=== PATIENT | male | born 1970 | race Caucasian/White ===

== ENCOUNTER 2018-10-14 07:15 | Inpatient (IN) | payer MEDICAID, MEDICARE ==
[~2018-10-14] VITALS: Ht 157.5 cm; Wt 114.0 kg
[~2018-10-14 07:15] MED LIST: ACET650S12 PR; ADAL40PE7 INJ; AMLO-150 PO; ASPI325T17 PO; ATOR10TA9 PO; AZAT50TA9 PO; CARV6.252 PO; CIPR500T87 PO; EMPA1TAB7 PO; EPINEPHRINE 1 MG/ML, 1ML ONE; FAMO20TA37 PO; FLUC200T4 PO; FLUO20CA19 PO; HYDR-3240 PO; IBUP-1222 PO; INSU100I34 SC; KETOROLAC 60 MG/2 ML ONE; LEVO500T8 PO; LISI40TA PO; LISINOPRIL PO; MELO15TA24 PO; OMEP-110 PO; OXYC-302 PO; OXYC10TA6 PO; OXYC5TAB3 PO; PROM25TA10 PO; ROPIvacaine/PF 0.2%, 20 ML ONE; TRANEXAMIC ACID 100 MG/ML, 10ML ONE; UNKNOWN MEDS; [UNRECOGNIZED DRUG - REMARK]; morphine SULFATE/PF 1 MG/ML, 10ML ONE
[2018-10-14] MEDS ORDERED: LACTATED RINGERS 1,000 ML IV SCH (07:49)
[2018-10-14 07:56] VITALS: BP 142/94
[2018-10-14] MEDS ORDERED: MIDAZOLAM 1 MG/ML, 2ML ONE (08:39)
[2018-10-14] MEDS ORDERED: FENTANYL PF 250 MCG/5ML ONE ×2 (08:39→09:42)
[2018-10-14] MEDS ORDERED: ROCURONIUM 10 MG/ML,10ML ONE (09:22)
[2018-10-14] MEDS ORDERED: DEXAMETHASONE 4 MG/ML, 1ML ONE (09:22)
[2018-10-14] MEDS ORDERED: CEFAZOLIN 1,000 MG ONE (09:22)
[2018-10-14] MEDS ORDERED: PROPOFOL 10 MG/ML, 20ML ONE (09:22)
[2018-10-14] MEDS ORDERED: ONDANSETRON 2MG/ML, 2ML ONE (09:22)
[2018-10-14] MEDS ORDERED: ACETAMINOPHEN 325 MG TABLET PO PRN (09:30)
[2018-10-14] MEDS ORDERED: MEPERIDINE/PF 25MG/0.5ML IVPush PRN (09:30)
[2018-10-14] MEDS ORDERED: OXYcodone 5 MG/5 ML ORAL.SOL UDC PO PRN (09:30)
[2018-10-14] MEDS ORDERED: MORPHINE SULFATE 4 MG/ML, 1ML IVPush PRN (09:30)
[2018-10-14] MEDS ORDERED: LABETALOL 5MG/ML, 20ML IV PRN (09:30)
[2018-10-14] MEDS ORDERED: ONDANSETRON 2MG/ML, 2ML IV PRN (09:30)
[2018-10-14] MEDS ORDERED: FENTANYL PF 100 MCG/2ML ONE ×2 (10:50→11:14)
[2018-10-14] MEDS ORDERED: OXYcodone 5 MG/5 ML ORAL.SOL UDC ONE (10:51)
[2018-10-14] MEDS ORDERED: morphine SULFATE 10 MG/ML, 1ML ONE (10:51)
[2018-10-14] MEDS: FENTANYL PF 100 MCG/2ML IV PRN ×3 (11:00→11:15)
[2018-10-14] MEDS ORDERED: ONDANSETRON 2MG/ML, 2ML IVPush PRN (12:30)
[2018-10-14] MEDS ORDERED: HYDROcodone/APAP 7.5-325MG/15ML UDC PO PRN (12:30)
[2018-10-14] MEDS ORDERED: MAGNESIUM HYDROXIDE 8%, 30ML UDC PO PRN (12:30)
[2018-10-14] MEDS ORDERED: ALUMINUM/MAG/SIMETHICONE 30 ML UDC PO PRN (12:30)
[2018-10-14] MEDS ORDERED: ZOLPIDEM 5MG TABLET PO PRN (12:30)
[2018-10-14] MEDS ORDERED: SENNA/DOCUSATE TABLET PO PRN (12:30)
[2018-10-14] MEDS ORDERED: BISACODYL 10 MG SUPP PR PRN (12:30)
[2018-10-14] MEDS ORDERED: DIPHENHYDRAMINE 25 MG CAPSULE PO PRN (12:30)
[2018-10-14] MEDS: POTASSIUM CHLORIDE 10 MEQ in D5%-0.45% NACL 1,000 ML IV SCH (14:04)
[2018-10-14] MEDS: OXYcodone IR 5MG TABLET PO PRN ×2 (14:35→19:15)
[2018-10-14 15:15] VITALS: BP 125/80
[2018-10-14] MEDS: OMEPRAZOLE 20 MG CAPSULE.DR PO SCH (17:18)
[2018-10-14] MEDS: CEFAZOLIN PMX 1GM/50ML 50 ML IVPB SCH (17:18)
[2018-10-14] MEDS: DOCUSATE 100 MG CAPSULE PO SCH (19:15)
[2018-10-14] MEDS: PREGABALIN 75 MG CAPSULE PO SCH (19:15)
[2018-10-14 19:57] VITALS: BP 115/60
[2018-10-14] MEDS: ACETAMINOPHEN 325 MG TABLET PO PRN (20:48)
[2018-10-14] MEDS ORDERED: INSULIN GLARGINE 100 UNITS/ML, PEN SQ-INSULIN SCH (21:00)
[2018-10-15 00:05] VITALS: BP 105/62
[2018-10-15] MEDS: ACETAMINOPHEN 325 MG TABLET PO PRN ×4 (00:26→12:44)
[2018-10-15] MEDS: OXYcodone IR 5MG TABLET PO PRN ×4 (00:26→12:44)
[2018-10-15] MEDS: CEFAZOLIN PMX 1GM/50ML 50 ML IVPB SCH (01:37)
[2018-10-15 03:04] VITALS: BP 100/67
[2018-10-15] MEDS ORDERED: ENOXAPARIN 30 MG/0.3 ML SQ SCH (06:00)
[2018-10-15 07:47] VITALS: BP 101/69
[2018-10-15] MEDS: POTASSIUM CHLORIDE 10 MEQ in D5%-0.45% NACL 1,000 ML IV SCH (08:36)
[2018-10-15] MEDS: PREGABALIN 75 MG CAPSULE PO SCH (08:42)
[2018-10-15] MEDS: OMEPRAZOLE 20 MG CAPSULE.DR PO SCH (08:43)
[2018-10-15] MEDS: DOCUSATE 100 MG CAPSULE PO SCH (08:43)
[2018-10-15] MEDS ORDERED: CARVEDILOL 6.25 MG TABLET PO SCH (09:00)
[2018-10-15] MEDS ORDERED: MULTIVITAMINS/MINERALS TABLET PO SCH (09:00)
[2018-10-15] MEDS ORDERED: LISINOPRIL 20 MG TABLET PO SCH (09:00)
[2018-10-15] MEDS ORDERED: FLUOXETINE HCL 20 MG CAPSULE PO SCH (09:00)
[2018-10-15] MEDS ORDERED: AMLODIPINE 5 MG TABLET PO SCH (09:00)
[2018-10-15] MEDS ORDERED: KETOROLAC 30 MG/1 ML IV SCH (12:30)
[2018-10-15] MEDS ORDERED: OXYC-307 PO (12:51)
[2018-10-15] MEDS ORDERED: ASPI81TA45 PO (12:51)
[2018-10-15 13:06] VITALS: BP 142/98
== END 2018-10-15 13:35 | disposition home or self-care (01) | DRG 469 ==
LOC: OUT 07:15 → 4NOR 12:02 → OUT 22:59 → 4NOR 22:59 → DCLOUNGE 10-15 13:22
PROVIDERS: ADMIT Orthopaedic Surgery; ATTEND Orthopaedic Surgery
PROC: 0SRC0J9 Replacement of Right Knee Joint with Synthetic Substitute, Cemented, Open Approach (ICD-10-PCS; principal; 2018-10-14 09:30)
DX: M17.11 Unilateral primary osteoarthritis, right knee (principal); R53.2 Functional quadriplegia; K50.90 Crohn's disease, unspecified, without complications; I10 Essential (primary) hypertension; E78.5 Hyperlipidemia, unspecified; E11.9 Type 2 diabetes mellitus without complications
CPT/HCPCS: 82962; C1713; G0378; J0171; J0690; J1100; J1650; J1885; J2250; J2274; J2405; J2704; J2795; J3010; J3480; C1776; J7120